=== PATIENT | female | born 1985 | race African-American/Black ===

== ENCOUNTER 2019-04-30 09:14 | Outpatient (CLI) | payer OTHER, SELFPAY ==
--- NOTE | 2019-04-30 12:00 | NEURO_ITS ---
Patient Number: [id number] Impression: # Complains of right hand numbness # Right Carpal Tunnel Syndrome. # Left ulnar neuropathy around the elbow. # Needle/EMG exam not requested. Nerve Conduction Studies Anti Sensory Summary Table Stim Site NR Peak (ms) P-T Amp (?V) Site1 Site2 Delta-P (ms) Dist (cm) Sameer (m/s) Left Median Anti Sensory (2-3nd Digit) Wrist 3.4 95.0 Wrist 2-3nd Digit 3.4 14.0 41 Wrist 3.5 79.9 Wrist 2-3nd Digit 3.4 14.0 41 Right Median Anti Sensory (2-3nd Digit) Wrist 3.8 39.0 Wrist 2-3nd Digit 3.8 14.0 37 Wrist 3.9 37.5 Wrist 2-3nd Digit 3.8 14.0 37 Left Radial Anti Sensory (Base 1st Digit) Wrist 1.8 41.2 Wrist Base 1st Digit 1.8 0.0 Right Radial Anti Sensory (Base 1st Digit) Wrist 2.1 17.3 Wrist Base 1st Digit 2.1 0.0 Left Ulnar Anti Sensory (5th Digit) Wrist 2.3 61.6 Wrist 5th Digit 2.3 14.0 61 Right Ulnar Anti Sensory (5th Digit) Wrist 2.3 91.5 Wrist 5th Digit 2.3 14.0 61 Motor Summary Table Stim Site NR Onset (ms) O-P Amp (mV) Site1 Site2 Delta-0 (ms) Dist (cm) Sameer (m/s) Left Median Motor (Abd Poll Brev) Wrist 3.1 7.8 Elbow Wrist 4.2 27.0 64 Elbow 7.3 4.7 Right Median Motor (Abd Poll Brev) Wrist 4.4 0.0 Elbow Wrist 4.1 28.0 68 Elbow 8.5 0.0 Left Ulnar Motor (Abd Dig Minimi) Wrist 2.2 9.2 A Elbow Wrist 4.8 26.0 54 A Elbow 7.0 8.3 B Elbow Wrist 3.8 19.0 50 B Elbow 6.0 5.3 Right Ulnar Motor (Abd Dig Minimi) Wrist 3.0 0.0 A Elbow Wrist 4.8 30.0 63 A Elbow 7.8 0.0 F Wave Studies NR F-Lat (ms) L-R F-Lat (ms) Left Median (Mrkrs) (Abd Poll Brev) 24.61 1.52 Right Median (Mrkrs) (Abd Poll Brev) 26.13 1.52 Left Ulnar (Mrkrs) (Abd Dig Min) 25.17 0.82 Right Ulnar (Mrkrs) (Abd Dig Min) 24.35 0.82 MTDD
== END 2019-04-30 09:15 | disposition home or self-care (01) ==
PROVIDERS: Visit Provider Plastic Surgery
DX: R20.2 Paresthesia of skin (principal); R53.1 Weakness; G56.01 Carpal tunnel syndrome, right upper limb; G56.22 Lesion of ulnar nerve, left upper limb
CPT/HCPCS: 95911

== ENCOUNTER 2021-02-25 01:37 | Day surgery (SDC) | payer OTHER, SELFPAY ==
[2021-02-22 10:43] VITALS: BMI 37.0
--- NOTE | 2021-02-22 10:50 | PC.NURSE ---
Report to the Outpatient Waiting Room, entrance under the green pavilion located off [facility], at time 1300 on date 02/25/21. OR Time: 1400. - You will be asked a series of questions to screen for COVID 19 for your protection. - A mask is required within the hospital. - No visitors are allowed at this time. Preoperative COVID Testing Requirements: TO EMAIL CARD No COVID Test needed if: (proof is required; if not received patient will have Rapid Test prior to entry) - Patient has received COVID Vaccine at least 14 days prior to procedure date or - Patient has positive COVID test result within last 90 days of surgery date. COVID Test needed if above criteria is not met If not COVID vaccinated a COVID test must be conducted within 72 hours of surgery and patient is asked to isolate self from time of testing until procedure. You will go to the [facility] for your COVID testing. The [facility] Testing site is located at the corner of [address] [facility]. You will only be called if COVID results are positive and your surgeon may reschedule your elective surgery date. MAY HAVE LIGHT BREAKFAST/LUNCH Take the following medications with a SIP of water the morning of surgery: PRESCRIBED Medications to discontinue per physician: N/A Date to take last dose: N/A Please no make-up, nail english, hairspray, perfume, deodorant, or body powder the day of surgery. No jewelry (including any body piercings) or valuables the day of surgery, leave them at home. Please take a shower or bath the night before, or the morning of, surgery with an antibacterial soap. Wear comfortable, loose fitting clothing. - Jewelry must be removed prior to entering the operating room. Rings and piercings that are not removed may be cut off. - The hospital will not accept responsibility for valuables. - Please leave all valuables, including medications, at home the day of surgery. YOU MAY DRIVE YOURSELF TO/FROM THE HOSPITAL. Follow any additional instructions given to you from your surgeon. Telephone instructions given to CARLOS RODRIGUEZ and asked if any additional questions and then verbalized understanding. Patient advised to call surgeon office or pre surgery nurse liaison [phone] if any additional questions.
--- NOTE | 2021-02-24 18:00 | P.HP_ITS ---
History of Present Illness History of Present Illness Consent: Risks, benefits, and alternatives have been discussed and questions answered. Patient agrees to proceed with procedure. Chief complaint: right carpal tunnel syndrome Narrative: Xena Frausto is a 35 year old right hand dominant female with a nerve conduction test from April of 2019 indicating right carpal tunnel syndrome and left cubital tunnel syndrome her complaints are primarily on the right side in involve digital numbness and weakness. I have seen her over a 2 year period.. She has tried corticosteroid injections and the right carpal tunnel splint. Were suggesting carpal tunnel release. She understands there will be an incision and a scar. There is a possibility of infection cutaneous nerve injury leading to numbness. there may be poor recovery of her pre morbid condition. She prefers local anesthetic. She would like to proceed. Review of Systems Review of Systems: All systems reviewed & are unremarkable except as noted in HPI and below Musculoskeletal: Musculoskeletal: Reports muscle cramps, Reports muscle weakness and Reports numbness Comments: left hand worse than the right PMFSH Social History Social History Smoking status: Former smoker Smoking end date: 02/13/19 Additional smoking assessment comments: SOCIAL SMOKER Alcohol intake: current Alcohol use details: SOCIAL Substance use: never Substance use type: does not use Living arrangements: alone Spiritual care concerns: No Meds Home Medications and Allergies Home Medications Medication Instructions Recorded Confirmed Type loratadine [Claritin] 10 mg PO DAILY 02/22/21 02/22/21 History multivitamin 1 tablet PO DAILY 02/22/21 02/22/21 History Allergies Allergy/AdvReac Type Severity Reaction Status Date / Time No Known Allergies Allergy Unverified 02/22/21 10:41 Exam 2 Narrative: she is alert in no distress and provides excellent history. Const: General: cooperative Nutritional Appearance: average body habitus HENMT: Head: normal to inspection Chest: Chest palpation & inspection: normal inspection of the chest Resp: Effort & Inspection: normal respiratory effort Cardio: Rate: regular rate Rhythm: regular rhythm Skin: General skin exam: normal color and no rashes or lesions noted Neuro: General: patient oriented x3 Motor exam (neuro): Abnormal motor strength present Sensory Exam: Sensory deficit (Neuro) Extrem: Other: This is trouble flexing her right thumb to the palm. there is a Tinel's sign at the wrist, provocative pain in the forearm and wrist compression test was positive on the right Psych: Appearance: grossly normal Mental Status: mental status grossly normal Speech and movement: Normal speech and movement present Assessment and Plan Assessment and plan (1) Right carpal tunnel syndrome: Code(s): G56.01 - Carpal tunnel syndrome, right upper limb Status: Acute Additional Plan right open carpal tunnel release under local anesthetic
--- NOTE | 2021-02-25 08:21 | WPDHPUPDATE1 ---
History and Physical Update Update Date/Time: 02/25/21 08:21 History and Physical has been reviewed, including an updated exam of the patient. There are NO changes in the patient's condition. Risks, benefits, and alternatives have been discussed and questions answered. Patient agrees to proceed with procedure.
[2021-02-25 12:26] VITALS: BP 132/90; PULSE 87; RESP 16; TEMP 36.7; O2SAT 100
[2021-02-25 14:20] VITALS: BP 110/69; PULSE 80; RESP 16; O2SAT 100
[2021-02-25 14:30] VITALS: BP 111/71; PULSE 77; RESP 16; O2SAT 100
[2021-02-25 14:40] VITALS: BP 109/65; PULSE 79; RESP 16; O2SAT 100
[2021-02-25] MEDS: BACITRACIN OINTMENT 15 GM TUBE 1 APPLIC TOPICAL (14:43)
[2021-02-25] MEDS: LIDO 1%/EPINEPHRINE/PF 1:200,000 30 ML VIAL XX (14:45)
[2021-02-25 14:48] VITALS: BP 107/66; PULSE 77; RESP 16; O2SAT 100
[2021-02-25 14:55] VITALS: BP 118/86; PULSE 80; RESP 16; O2SAT 100
--- NOTE | 2021-02-25 15:02 | W.PM.PROC2 ---
Procedure Note - Detailed Date of Procedure 02/25/21 Pre-op Diagnosis right carpal tunnel syndrome Post-op Diagnosis same Procedure Performed Right open carpal tunnel release Surgeon Yuriy Moya MD Anesthesia local Description of Procedure The skin over the patient's right carpal tunnel was marked in the holding area. She was taken to the operating room where she was placed supine on the operating table. A time-out was held and confirmed. The extremity was prepped and draped in usual fashion. The surgical site was marked for the incision and locally infiltrated with 1% lidocaine with epinephrine. The tourniquet was not utilized. The incision was made as marked and dissection was carried bluntly through the subcutaneous tissue to the palmar aponeurosis. This and the transverse carpal retinaculum were incised with a 15 blade opening the canal. Under 3 point retraction the ligament was divided distally and proximally to completely release it. No unusual anatomy was noted. The wound was closed with interrupted nylon suture. The tourniquet was released. The usual bandage was applied. She was discharged home with instructions in wound care and follow-up. Estimated Blood Loss 1 Tourniquet Time 0 Drains No Packing No Pathology none sent Complications No immediate complications Condition stable Disposition same day
== END 2021-02-25 15:19 | disposition home or self-care (01) ==
PROVIDERS: PCP Internal Medicine; Visit Provider Plastic Surgery
PROC: (CPT 64721; principal; 2021-02-25 12:30)
DX: G56.01 Carpal tunnel syndrome, right upper limb (principal)
CPT/HCPCS: 64721; A9270

== ENCOUNTER 2021-11-25 01:19 | Day surgery (SDC) | payer OTHER, SELFPAY ==
[2021-11-15 16:49] VITALS: BMI 34.9
--- NOTE | 2021-11-15 17:03 | SUR.PREOP ---
Report to the Outpatient Waiting Room, entrance under the green pavilion located off [facility], at time 1200 on date 11/25/2021. OR Time: 1300. Time changes happen often and if your time is changed the preop area will call you the afternoon before. - You and your visitor will be asked to self-screen and do not enter if you have any COVID symptoms. - Only one visitor and NO children visitors are allowed at this time. - The patient visitor is requested to leave or wait in car when not with patient due to restrictions. - A mask is required within the hospital. Patients may have clear liquids (water, carbonated beverages, clear teas, apple juice) until 3 hours prior to surgery with a maximum of 20 ounces. - Patient can have light breakfast for local case - Infants may have breast milk until 4 hours before surgery, infant formula 6 hours prior to surgery. - Children will be allowed to drink immediately following surgery. If applicable, please bring a bottle or sippy cup to assist with drinking. Juice, water, soda, and popsicles are readily available. For infants on formula, please bring formula the day of surgery. Pacifiers are allowed. Take the following medications with a SIP of water the morning of surgery: N/A Medications to discontinue per physician N/A Date to take last dose N/A Please no make-up, nail estonian, hairspray, perfume, deodorant, or body powder the day of surgery. No jewelry (including any body piercings) or valuables the day of surgery, leave them at home. Please take a shower or bath the night before, or the morning of, surgery with an antibacterial soap. Wear comfortable, loose fitting clothing. Children are encouraged to wear pajamas. - Jewelry must be removed prior to entering the operating room. Rings and piercings that are not removed may be cut off. - The hospital will not accept responsibility for valuables. - Please leave all valuables, including medications, at home the day of surgery. If you are going home after surgery, a licensed sheet pile driver operator must drive you home. - NO public transportation without another adult. - We recommend that an adult stay with you for 24 hours following discharge. - We also recommend that you do not drive, make important decision, drink alcoholic beverages, or take any drugs that were not prescribed by your health care provider for at least 24 hours after your discharge time. For Pediatric surgeries, we recommend two adults accompany the child home (only one inside the building at this time). Follow any additional instructions given to you from your surgeon. If you or anyone in your household have experienced Covid symptoms in the past week, please notify your surgeon or the nurse liaison at the phone number below for possible testing. Telephone instructions given to patient and asked if any additional questions and then verbalized understanding. Patient advised to call surgeon office or pre surgery nurse liaison [phone] if any additional questions.
[2021-11-25] VITALS (9 sets, daily range): BP systolic 105–121; BP diastolic 51–72; PULSE 72–89; RESP 16; TEMP 36.6; O2SAT 98–100
--- NOTE | 2021-11-25 07:16 | WPDHPUPDATE1 ---
History and Physical Update Update Date/Time: 11/25/21 07:16 History and Physical has been reviewed, including an updated exam of the patient. There are NO changes in the patient's condition. Risks, benefits, and alternatives have been discussed and questions answered. Patient agrees to proceed with procedure. The procedure planned for 11/25/2021 is Left Open Carpal Tunnel Release.
--- NOTE | 2021-11-25 13:14 | SUR.PREOP ---
Discussed delay with patient.
[2021-11-25] MEDS: LIDO 2%/EPINEPHRINE 1:100,000 20 ML VIAL 10 ML INFILTRATE (14:21)
--- NOTE | 2021-11-25 14:37 | W.PM.PROC2 ---
Procedure Note - Detailed Date of Procedure 11/25/21 Pre-op Diagnosis left carpal tunnel syndrome Post-op Diagnosis Same Procedure Performed Left open carpal tunnel release Surgeon Yuriy Moya MD Anesthesia Local Description of Procedure The left carpal canal was marked on the patient in the holding area. She was taken to the operating room where she was placed supine on the operating table. The left upper extremity was prepped and draped in usual fashion. A time-out was held and confirmed. The site was remarked for incision and this area infiltrated with 2% lidocaine with epinephrine. A few minutes were allowed for some hemostatic effect. The incision was made without tourniquet control. The dissection was carried through the subcutaneous tissue with blunt dissection. The palmar aponeurosis was identified and incised with scissors and knife. The transverse retinaculum was incised with a 15. Blade. Under 3 point retraction it was divided distally and proximally to completely release it. No unusual anatomy was noted. The skin was closed with interrupted 5 0 nylon suture. The usual bandage with Edgard wrap was applied. She is discharged from the operating room stable condition. A prescription for hydrocodone 5/325 number 7 was sent. Drains No Packing No Pathology None sent Complications No immediate complications Condition Stable Disposition Same day
== END 2021-11-25 15:17 | disposition home or self-care (01) ==
PROVIDERS: Visit Provider Plastic Surgery
PROC: (CPT 64721; principal; 2021-11-25 12:45)
DX: G56.02 Carpal tunnel syndrome, left upper limb (principal)
CPT/HCPCS: 64721